=== PATIENT | female | born 1990 | race Caucasian/White ===

== ENCOUNTER 2017-10-25 20:02 | Emergency (ER) | payer MEDICAID ==
[~2017-10-25] VITALS: Ht 160 cm; Wt 63.6 kg
[2017-10-25] MEDS ORDERED: CEPH-572 PO (22:31)
[2017-10-25 22:43] VITALS: BP 135/96
[2017-10-25 23:14] LABS: URINE HCG NEGATIVE (NEG)
[2017-10-25 23:35] LABS: CLARITY,URINE SLIGHTLY CLOUDY (Clear); COLOR,URINE STRAW (Yellow); GLUCOSE, URINE NEGATIVE (Neg); KETONES,URINE NEGATIVE (Neg); LEUKOCYTE ESTERASE ,URINE SMALL (Neg); NITRITES, URINE NEGATIVE (Neg); OCCULT BLOOD,URINE SMALL (Neg); PROTEIN,URINE NEGATIVE (Neg); UROBILINOGEN,URINE 0.2 E.U/dL (0.2-1.0)
[2017-10-25 23:40] LABS: UA COLLECTION TYPE CLN CATCH MIDSTREAM
[2017-10-25 23:43] LABS: BACTERIA,URINE 4+ /HPF (Neg); SQUAMOUS EPITHELIAL CELL,UR MANY /LPF (FEW)
[2017-10-25 23:44] LABS: AMORPHOUS PHOSPHATES 2+
[2017-10-25 23:46] LABS: RBC,URINE 0-2 /HPF (0-2)
== END 2017-10-25 22:44 | disposition home or self-care (01) ==
LOC: ER 20:03
DX: N39.0 Urinary tract infection, site not specified (principal)
CPT/HCPCS: 81001; 81025; 99283; 99284